=== PATIENT | male | born 1960 | race American Indian/Alaskan Native ===

== ENCOUNTER 2018-04-17 10:57 | Observation (INO) | payer BC ==
[2018-04-17 11:04] VITALS: BMI 42.8
[2018-04-17 11:36] LABS: BASO # 0.04 K/mm3 (0.0-2.0); BASO % 0.6 % (0.0-3.0); EOS # 0.2 (0.0-0.7); EOS % 3.4 % (1.5-5.0); GRAN # 4.06 (1.4-6.5); GRAN % 60.5 % (50.0-68.0); HEMOGLOBIN 13.2 g/dL (14.0-18.0); LYMPH # 1.8 (1.2-3.4); LYMPH % 26.9 % (22.0-35.0); MEAN CELL VOLUME 82.3 fl (80.0-105.0); MEAN CORPUSCULAR HEMOGLOBIN 28.2 pg (25.0-35.0); MEAN CORPUSCULAR HGB CONC 34.3 g/dl (31.0-37.0); MEAN PLATELET VOLUME 10.2 fl (7.0-11.0); MONO # 0.6 (0.1-0.6); MONO % 8.6 % (1.0-6.0); RBC 4.68 10^6/uL (3.5-6.1); RED CELL DISTRIBUTION WIDTH 14.9 % (11.5-14.5); WHITE BLOOD COUNT 6.7 10^3/uL (4.5-11.0)
--- NOTE | 2018-04-17 11:36 | ED PDOC ---
Arrival/HPI - General Chief Complaint: Shortness Of Breath Time Seen by Provider: 04/17/18 11:14 Historian: Patient - History of Present Illness Narrative History of Present Illness (Text): 04/17/18 11:37 A 58 year old male, whose past medical history includes pulmonary embolism (2001, was given 6 months of anticoagulants), presents to the emergency department complaining of right-side chest pain for 5 days. Patient reports [address] pain is similar to when he was diagnosed with PE. States pain worsens with movements of bilateral arms. Patient denies fever, shortness of breath, HODGE, chills, nausea, vomiting, diarrhea, abdominal pain, or any other complaints at this time. PMD: Dr. Ramirez Past Medical History - Provider Review Nursing Documentation Reviewed: Yes - Infectious Disease Hx of Infectious Diseases: None - Cardiac Hx Hypertension: Yes - Pulmonary Hx Pulmonary Embolism: Yes - Musculoskeletal/Rheumatological Hx Gout: Yes - Psychiatric Hx Substance Use: No Family/Social History - Physician Review Nursing Documentation Reviewed: Yes Family/Social History: No Known Family HX Smoking Status: Never Smoked Hx Alcohol Use: Yes Frequency of alcohol use: Socially Hx Substance Use: No Allergies/Home Meds Allergies/Adverse Reactions: Allergies No Known Allergies Allergy (Verified 04/17/18 11:07) Review of Systems - Review of Systems Constitutional: absent: Fevers, Night Sweats Eyes: absent: Vision Changes ENT: absent: Hearing Changes Respiratory: absent: SOB Cardiovascular: Chest Pain (right-side, worsens with movement of bilateral arms.). absent: Palpitations, Edema, Calf Pain, HODGE, Orthopnea, Syncope Gastrointestinal: absent: Abdominal Pain, Diarrhea, Nausea, Vomiting Genitourinary Male: absent: Dysuria Skin: absent: Rash, Pruritis Neurological: absent: Headache Psychiatric: absent: Anxiety, Depression Physical Exam Vital Signs Reviewed: Yes Temperature: Afebrile Blood Pressure: Normal Pulse: Regular Respiratory Rate: Normal Appearance: Positive for: Well-Appearing, Non-Toxic, Comfortable Pain Distress: None Mental Status: Positive for: Alert and Oriented X 3 - Systems Exam Head: Present: Atraumatic, Normocephalic Pupils: Present: PERRL Extroacular Muscles: Present: EOMI Conjunctiva: Present: Normal Mouth: Present: Moist Mucous Membranes Neck: Present: Normal Range of Motion Respiratory/Chest: Present: Clear to Auscultation, Good Air Exchange. No: Respiratory Distress, Accessory Muscle Use Cardiovascular: Present: Regular Rate and Rhythm, Normal S1, S2. No: Murmurs Abdomen: No: Tenderness, Distention, Peritoneal Signs Back: Present: Normal Inspection Upper Extremity: Present: Normal Inspection. No: Cyanosis, Edema Lower Extremity: Present: Normal Inspection. No: Edema Neurological: Present: GCS=15, CN II-XII Intact, Speech Normal Skin: Present: Warm, Dry, Normal Color. No: Rashes Psychiatric: Present: Alert, Oriented x 3, Normal Insight, Normal Concentration Medical Decision Making ED Course and Treatment: 04/17/18 11:39 Impression: 58 year old male with right-side chest pain. No acute findings on physical examination. Plan: -- Chest X-Ray -- Labs -- Aspirin Progress Notes: 04/17/2018 12:07 Chest X-Ray IMPRESSION: No active disease. Dictator: Scar Aguirre MD 04/17/18 12:[address] ordered. 04/17/18 12:36 EKG shows NSR at 81bpm with pr:232. No prior for comparison. 04/17/2018 15:[address] IMPRESSION: Unremarkable CT pulmonary angiogram. No pulmonary embolus. Dictator: Scar Aguirre MD 04/17/18 16:[address] Ramirez, as patient has no prior cardiac evaluation, and multiple risk factors and heart score:4, recommends tele observation with Dr. Blue on consult 19:09 - Lab Interpretations I have reviewed the lab results: Yes - RAD Interpretation Radiology Orders: 04/17/18 11:21 CHEST PORTABLE [RAD] Stat - Medication Orders Current Medication Orders: Discontinued Medications Aspirin (Aspirin Chewable) 324 mg PO STAT STA Stop: 04/17/18 11:21 - Scribe Statement The provider has reviewed the documentation as recorded by the Gerard Rayo Provider Scribe Attestation: All medical record entries made by the Scribe were at my direction and personally dictated by me. I have reviewed the chart and agree that the record accurately reflects my personal performance of the history, physical exam, medical decision making, and the department course for this patient. I have also personally directed, reviewed, and agree with the discharge instructions and disposition. Disposition/Present on Arrival - Present on Arrival Any Indicators Present on Arrival: No History of DVT/PE: No History of Uncontrolled Diabetes: No Urinary Catheter: No History of Decub. Ulcer: No History Surgical Site Infection Following: None - Disposition Have Diagnosis and Disposition been Completed?: Yes Diagnosis: Chest pain Disposition: HOSPITALIZED Disposition Time: 17:00 Patient Plan: Observation Condition: FAIR Discharge Instructions (ExitCare): Chest Pain (ED) Forms: [employer] ([employer])
[2018-04-17 11:45] LABS: INR 0.97; PROTHROMBIN TIME 11.2 SECONDS (9.4-12.5)
[2018-04-17 11:46] LABS: ALB/GLOB RATIO 1.3 (1.1-1.8); ALBUMIN 4.4 g/dL (3.0-4.8); ALT/SGPT 29 U/L (7-56); AST/SGOT 29 U/L (17-59); BLOOD UREA NITROGEN 13 mg/dL (7-21); GFR NON-AFRICAN AMERICAN > 60
[2018-04-17 11:57] LABS: TROPONIN I < 0.01 ng/mL
--- NOTE | 2018-04-17 12:11 | RAD ---
Date of service: 04/17/2018 HISTORY: pleuritic chest pain COMPARISON: No prior. FINDINGS: LUNGS: No active pulmonary disease. PLEURA: No significant pleural effusion identified, no pneumothorax apparent. CARDIOVASCULAR: No aortic atherosclerotic calcification present. Normal cardiac size. No pulmonary vascular congestion. OSSEOUS STRUCTURES: No significant abnormalities. VISUALIZED UPPER ABDOMEN: Normal. OTHER FINDINGS: None. IMPRESSION: No active disease.
[2018-04-17] MEDS ORDERED: Iohexol 350 MG/100 ML VIAL ONE (12:19)
--- NOTE | 2018-04-17 14:53 | CARD ---
APPROVED REPORT Date of service: 04/17/2018 EKG Measurement Heart [id number] <Conclusion> Sinus rhythm with 1st degree AV block Otherwise normal ECG
--- NOTE | 2018-04-17 16:00 | CT ---
Date of service: 04/17/2018 PROCEDURE: CT Chest with contrast (Pulmonary Angiogram) HISTORY: hx of PE, pleuritic chest pain COMPARISON: None available. TECHNIQUE: Axial computed tomography images were obtained of the chest in the pulmonary arterial phase of enhancement. Coronal and sagittal reformatted images were created and reviewed. Intravenous contrast dose: 100 cc of Omni 350 Radiation dose: Total exam DLP = 539.33 mGy-cm. This CT exam was performed using one or more of the following dose reduction techniques: Automated exposure control, adjustment of the mA and/or kV according to patient size, and/or use of iterative reconstruction technique. FINDINGS: PULMONARY ARTERIES: Unremarkable. No pulmonary embolism. AORTA: No acute findings. No thoracic aortic aneurysm. No aortic atherosclerotic calcification or mural plaque present. LUNGS: Unremarkable. No nodule, mass or pulmonary consolidation. PLEURAL SPACES: Unremarkable. No effusion or pneumothorax. HEART: Unremarkable. No cardiomegaly. No significant pericardial effusion. LYMPH NODES: No lymphadenopathy. BONES, CHEST WALL: Unremarkable. No fracture or destructive lesion OTHER FINDINGS: Unremarkable. IMPRESSION: Unremarkable CT pulmonary angiogram. No pulmonary embolus.
--- NOTE | 2018-04-17 18:57 | HP ---
DATE OF EXAM: 04/17/2018 HISTORY OF PRESENT ILLNESS: I was called down to the emergency room to admit him to the hospital. He is a patient, I have known for many years. He is a 58-year-old man who presents to the emergency room with right-sided chest pain for 5 days. He had a similar incident way back when he had pulmonary embolus and he said the pain worsens with movements in his arms. He is short of breath and dyspnea on exertion. PAST MEDICAL HISTORY: He has got a past medical history which has a pulmonary embolism in 2001. He was given 6 months of anticoagulants. He has hypertension, pulmonary embolism, and gout. ALLERGIES: HE HAS NO KNOWN DRUG ALLERGIES. MEDICATIONS: I have no list of his medications from home. FAMILY HISTORY: There is hypertension in the family. SOCIAL HISTORY: Never smoked. He drinks alcohol socially. No substance abuse. REVIEW OF SYSTEMS: No acute vision changes or hearing changes. No sore throat. There is right-sided chest pain. There is shortness of breath. No fevers. His right-sided chest pain worsens when he moves his arms. No dyspnea on exertion. No nausea, vomiting, constipation, or diarrhea. He can move all extremities well. No apparent skin issues that he knows of. He is anxious. PHYSICAL EXAMINATION: VITAL SIGNS: 98.2 temperature, 80 pulse, 128/90 blood pressure, 17 respiratory rate, and 90% O2 sat on room air. He is afebrile. GENERAL: Comfortable, well-appearing, nontoxic, and alert and oriented x3. HEENT: Head is atraumatic and normocephalic. Extraocular muscles are intact. Throat is moist. NECK: Supple. Pupils are equal and react to light and accommodation. HEART: Regular rate. Normal S1 and S2. LUNGS: Decreased breath sounds bilaterally, but clear to auscultation, poor inspiration with no wheezes, rhonchi or rales. EXTREMITIES: He can move all four extremities. He can raise both his arms over his head and did not make the right-sided chest pain at this time. Have no edema bilaterally. ABDOMEN: He is morbidly obese, soft, and nontender. Positive bowel sounds. No guarding. No rebound. No CVA tenderness. NEUROLOGIC: GCS is 15. Cranial nerves II through XII grossly intact. Normal speech. Alert and oriented x3. Normal insight. SKIN: Warm and dry. No apparent rashes or ulcers I could appreciate at this time. LYMPHS: No palpable thyroid. No palpable lymphadenopathy appreciated. LABORATORY DATA: Chest x-ray showed no active disease. CT angio also was unremarkable. Blood tests; he has a 6.7 white count, 13.2 hemoglobin, 38.5 hematocrit with 288 platelets. He has 0.97 INR. ASSESSMENT AND PLAN: We are going to put him in overnight for observation. Get Cardiology consult. Check his troponins x2 more every 8 hours. Watch his blood pressure. I will continue with aggressive treatment and care. He is on observation. Check for troponins and given some oxygen. He is here for chest pain. Gil Ramirez DO MTDD
[2018-04-18 06:48] VITALS: BP 115/78; PULSE 74; RESP 19; TEMP 97.8; O2SAT 98
[2018-04-18 06:59] LABS: TROPONIN I < 0.01 ng/mL
[2018-04-18 07:06] LABS: HEMOGLOBIN 12.3 g/dL (14.0-18.0); MEAN CELL VOLUME 83.4 fl (80.0-105.0); MEAN CORPUSCULAR HEMOGLOBIN 27.2 pg (25.0-35.0); MEAN CORPUSCULAR HGB CONC 32.5 g/dl (31.0-37.0); MEAN PLATELET VOLUME 10.5 fl (7.0-11.0); RBC 4.53 10^6/uL (3.5-6.1); RED CELL DISTRIBUTION WIDTH 14.9 % (11.5-14.5); WHITE BLOOD COUNT 5.7 10^3/uL (4.5-11.0)
[2018-04-18 07:20] LABS: ALB/GLOB RATIO 1.2 (1.1-1.8); ALT/SGPT 28 U/L (7-56); AST/SGOT 28 U/L (17-59); BLOOD UREA NITROGEN 17 mg/dL (7-21); CALCIUM 9.6 mg/dL (8.4-10.5); GFR NON-AFRICAN AMERICAN > 60
--- NOTE | 2018-04-18 10:23 | DS ---
HISTORY OF PRESENT ILLNESS: He came in with chest pain, right-sided chest pain. He had a CAT scan which was okay. He had blood test which showed 141 sodium, potassium 3.9, BUN 17, creatinine 1.1, GFR is greater than 60, sugar is 106, calcium is 9.6, total bili is 0.3, AST is 20, ALT is 20, alk phos is 70, troponin I is less than 0.01, total protein 7.3, and INR is 0.97. White count 5.7, hemoglobin 12.3, hematocrit 37.8, and platelets 285. He has a consult pending with Dr. Blue, carpenter prototype. The plan is to have an outpatient procedures with Dr. Blue if needed. He is feeling better today, the chest pain is limited and less. He can move both upper extremities. He is eating. He is walking to the bathroom. My plan is to discharge Mr. Kong home on a baby aspirin a day. He can take Motrin for the arm and shoulder pain and follow up with myself and Dr. Blue in the outpatient. He will be going to be discharged if Dr. Blue sees him this morning. He is here for chest pain. He will be observed. Gil Ramirez DO MTDD
[2018-04-18] MEDS ORDERED: Influenza Vaccine 60 mcg/0.5 mL SYR (4YR UP) IM ONE (11:30)
[2018-04-18] MEDS ORDERED: Pneumococcal 23-Valent Vaccine IM ONE (11:30)
--- NOTE | 2018-04-18 11:54 | CON ---
DATE: 04/18/2018 CARDIOLOGY CONSULTATION HISTORY: The patient is a 58-year-old male, who presented with right shoulder pain, which is reproducible on movement of the right shoulder. The patient's cardiac risk factors includes obesity as well as hypertension. While on the monitor, he was found to have AV sriram block consistent with a Wenckebach. He denies dizziness. Denies angina. No previous cardiac history. No diabetes mellitus. SOCIAL HISTORY: The patient does not smoke. REVIEW OF SYSTEMS: Review of systems was done in detail. No cardiac symptoms in the past. No previous cardiac history. He does suffer from gout. MEDICATIONS: Review of his medications reveals no AV blocking medications. PHYSICAL EXAMINATION: VITAL SIGNS: Blood pressure is 115/78, heart rates in the 70s, normal sinus rhythm. NECK: Negative JVD. LUNGS: Without rales. HEART: With S1, S2. EXTREMITIES: Without edema. EKG shows normal sinus rhythm with occasional AV sriram block consistent with Wenckebach. LABORATORY DATA: Hemoglobin is 12.3. Chemistries: BUN and creatinine unremarkable. Troponins are negative x3. His cholesterol is 160. IMPRESSION: 1. Atypical chest pain. 2. No evidence for acute coronary syndrome. 3. Wenckebach atrioventricular sriram block with no sequelae and resolution of the block during exertion while he was walking around the floor. 4. Hypertension. 5. Obesity. Given these findings, from a cardiac perspective, the patient can be discharged. The patient should avoid AV sriram blocking agents like digoxin and/or beta blockers. The patient can be discharged. We will arrange for an outpatient stress test and echocardiogram. I have discussed this with the patient in detail. Alberto Blue MD
== END 2018-04-18 12:55 | disposition home or self-care (01) ==
LOC: ED 10:57 → ERH 16:01 → 2RNO 04-18 00:21
PROVIDERS: ADMIT Family Medicine; ATTEND Family Medicine
DX: R07.89 Other chest pain (principal); I10 Essential (primary) hypertension; I44.1 Atrioventricular block, second degree; M10.9 Gout, unspecified; E66.9 Obesity, unspecified; Z68.41 Body mass index [BMI] 40.0-44.9, adult; Z86.711 Personal history of pulmonary embolism; Z23 Encounter for immunization
CPT/HCPCS: 36415; 71045; 71275; 80053; 83735; 84100; 84484; 85025; 85027; 85610; 85730; 90674; 90732; 93005; 99285; G0008; G0009; G0378; Q9967

== ENCOUNTER 2018-04-24 06:28 | Outpatient (CLI) | payer BC | END 2018-04-24 06:29 | disposition home or self-care (01) | LOC: CARDIO 06:28 ==